=== PATIENT | male | born 1930 | race Caucasian/White ===

== ENCOUNTER 2017-05-30 13:36 | Day surgery (SDC) | payer OTHER ==
[~2017-05-30] VITALS: Ht 167.6 cm; Wt 76.5 kg
[~2017-05-30 13:36] MED LIST: AMBI5TAB PO; CYCL5TAB PO; OMEP20CA5 PO; PRAV40TA PO; PRIN10TA PO
[2017-05-30 14:27] VITALS: BP 131/65; PULSE 69; RESP 18; TEMP 98.2; O2SAT 97
[2017-05-30] MEDS ORDERED: OMEP20TA PO (14:30)
[2017-05-30] MEDS ORDERED: MECL-62 PO (14:30)
[2017-05-30] MEDS ORDERED: APIX5TAB PO (14:30)
[2017-05-30] MEDS ORDERED: LORazepam 1 MG TAB SL SCH (14:30)
[2017-05-30] MEDS ORDERED: LISI10TA3 PO (14:30)
[2017-05-30] MEDS ORDERED: DILT60TA PO (14:30)
[2017-05-30] MEDS ORDERED: CHLORHEXIDINE GLUCONATE 2 % 1 PACK (2 CLOTHS) TOPICAL PRN (15:00)
[2017-05-30] MEDS ORDERED: METOPROLOL TARTRATE 25 MG TAB PO PRN (15:00)
[2017-05-30] MEDS ORDERED: POVIDONE IODINE 5% (ANTISEPSIS KIT) 4 APPLICATIONS EACH NARE PRN (15:00)
[2017-05-30] MEDS ORDERED: INSULIN HUMAN REGULAR 1,000 UNITS/10 ML VIAL SQ PRN (15:00)
[2017-05-30] MEDS ORDERED: LACTATED RINGER'S 1000 ML IV PRN (15:00)
[2017-05-30] MEDS ORDERED: SODIUM CHLORID 0.9% 500 ML IV PRN (15:00)
[2017-05-30 15:04] LABS: AUTOMATED NEUTROPHIL # 4.1 TH/MM3 (1.8-7.7); BASOPHIL # 0.1 TH/MM3 (0-0.2); BASOPHIL % 1.2 % (0.0-2.0); EOSINOPHIL # 0.1 TH/MM3 (0-0.4); EOSINOPHIL % 2.1 % (0.0-4.0); HEMATOCRIT 38.9 % (39.0-51.0); HEMO FLAGS DIFF FINAL; LYMPH % 23.1 % (9.0-44.0); LYMPHOCYTE # 1.5 TH/MM3 (1.0-4.8); MEAN CELL VOLUME 91.2 FL (80.0-100.0); MEAN CORPUSCULAR HEMOGLOBIN 31.2 PG (27.0-34.0); MEAN CORPUSCULAR HGB CONC 34.2 % (32.0-36.0); MONO % 9.4 % (0.0-8.0); NEUT % 64.2 % (16.0-70.0); PLATELET COUNT 265 TH/MM3 (150-450); RED BLOOD COUNT 4.26 MIL/MM3 (4.50-5.90); RED CELL DISTRIBUTION WIDTH 13.6 % (11.6-17.2); WHITE BLOOD COUNT 6.3 TH/MM3 (4.0-11.0)
[2017-05-30 15:23] LABS: APTT (PATIENT) 32.2 SEC (24.3-30.1); INTERNATIONAL NORMALIZED RATIO 1.1 RATIO; PROTHROMBIN TIME - PATIENT 12.2 SEC (9.8-11.6)
[2017-05-30] MEDS ORDERED: HEPARIN-NS/PF INJ 1,000 ML ONE (15:26)
[2017-05-30] MEDS ORDERED: LEVOFLOXACIN 500 MG PREMIX INJ 100 ML IV ONE (15:26)
[2017-05-30 15:32] LABS: POTASSIUM 4.1 MEQ/L (3.5-5.1)
[2017-05-30] MEDS ORDERED: HEPARIN-NS/PF INJ 500 ML ONE (15:42)
[2017-05-30] MEDS ORDERED: ISOPROTERENOL HCL 1 MG/5 ML AMP ONE (15:42)
[2017-05-30] MEDS ORDERED: SODIUM CHLOR 0.9% 250 ML INJ 250 ML ONE (15:43)
[2017-05-30] MEDS ORDERED: MIDAZOLAM HCL 2 MG/2 ML VIAL ONE (15:43)
[2017-05-30] MEDS ORDERED: HEPARIN SODIUM - IV 10,000 UNITS/10 ML VIAL ONE (15:43)
[2017-05-30] MEDS ORDERED: HEPARIN-D5W 25,000 U/250 ML 250 ML ONE (16:28)
[2017-05-30] MEDS ORDERED: PROTAMINE SULFATE 50 MG/5 ML VIAL ONE (17:36)
--- NOTE | 2017-05-30 17:57 | PD.CARD ---
Atrial Fibrillation Cryo Study PROCEDURE DATE: May 30, 2017 PROCEDURE PERFORMED Electrophysiology study, CS cannulation, 3-D mapping, transeptal approach, right and left heart catheterization, cryoablation of atrial fibrillation, pulmonary vein isolation, posterior ablation, anterior ablation, cardioversion, repeat electrophysiology study on Isuprel infusion, intracardiac echo. Very complex case. INDICATIONS FOR PROCEDURE Mr. Wasserman is a 87-year-old male with atrial fibrillation, on multiple medications, multiple emergency room visits, on anticoagulation, referred for electrophysiology study and ablation. The risks, the nature and the benefit of the procedure are clearly stated to him. The risks include pneumothorax, cardiac perforation, stroke, need for open heart surgery and even . The patient understood and agreed to proceed. PROCEDURE As written informed consent was obtained prior to esophageal echo, the patient was kept on the table where he was prepped and draped in the usual sterile fashion. Conscious sedation was initiated and throughout the procedure by the anesthesiologist. Once sedation was verified, the right and left inguinal area was anesthetized with 2% Xylocaine. Using modified Seldinger technique, the left femoral vein was cannulated on three occasions and three guidewires were advanced over the wire, one 6, one 7, and one 10-Indian Hemaquet were advanced. Then the left femoral artery was done on one occasion, one guidewire was advanced over the wire. A 4-Indian Hemaquet was advanced. Then the right femoral vein was cannulated on one occasion and one guidewire was advanced over the wire. An 8-Indian Hemaquet was advanced. Then under fluoroscopic guidance through the 6 and 7-Indian Hemaquet, two 5- Indian Fred curved quadripolar electrophysiology catheters were advanced and positioned on the His as well as coronary sinus. The patient was in sinus rhythm. Basic interval was measured. They were all within normal limits. Then through the 10-Indian Hemaquet, a Cordis-Gomez AcuNav intracardiac echo catheter was advanced and placed at the right atrium. Multiple views were obtained. There was no pericardial effusion. Pulmonary vein was seen. The atrial septum was visualized. Then the 8-Indian Hemaquet in the right femoral vein was exchanged for an Agilis transseptal sheath that was placed all the way to the superior vena cava. Through this sheath a [place] needle was advanced. Then the sheath, the dilator and the needle were pulled back progressively until foci engaged. Once the needle was advanced, RF was delivered for 2 seconds. I was able to cross into the left atrium. Once the needle was crossed, the dilator was advanced. Once the dilator was crossed, the sheath was advanced. Once the sheath crossed , the dilator and needle were removed. An intracardiac echo showed the sheath in good position. The patient already received 10,000 units of heparin. The goal is to get an ACT around 360 during the ablation. Through this sheath a [employer] 10-pole circumferential catheter was advanced. Using BitWave endocardial solution mapping system a three-dimensional configuration of the left atrium was obtained. Points were taken at the left superior and inferior vein, right superior and inferior vein, mitral valve, and appendage. Then at this point I decided to proceed with cryoablation. The circumferential catheter was removed. Through the sheath a 0.035 wire was advanced. I did exchange the Agilis sheath for a Medtronic flex sheath. I decided to use a 28mm balloon. The balloon was advanced over the wire. First I did engage the left superior vein. The balloon was inflated, complete occlusion obtained. CryoEnergy was delivered for 3 and 3 minutes. Temperature reached --46. Then I did engage the left inferior vein, occlusion obtained. Venography showed complete occlusion and CryoEnergy was delivered for 3 and 3 minutes. Temperature was around -46 to -50. Then the right inferior was engaged, complete occlusion obtained. Temperature reach -48 for 3 and 3 minutes. Then the right superior was engaged. Before CryoEnergy of the right veins, the His catheter was placed at the left and the right subclavian. Phrenic nerve pacing was performed. There was diaphragmatic stimulation. That is going to be used for phrenic nerve monitoring during cryoablation. I did cryoablate the right superior vein. There was no loss of phrenic nerve movement , diaphragmatic movement. Phrenic nerve was intact. The temperature dropped to -50 for 3 and 3 minutes. At that point I removed the balloon. Patient went adan atrial fibrillation during isolation of the left inferior vein. The circumferential catheter was advanced into the veins. There was no signal into the veins. Patient was converted into sinus rhythm by a 200 sync biphasic joules. Pacing from the vein showed no conduction to the atrium. Pacing from the atrium showed no conduction to the veins. The patient at this point received Isuprel infusion for around 10 minutes at 20mcg. No tachyarrhythmia was induced, no conduction resumed. Post-Isuprel no conduction resumed either. At that point the procedure was complete. All catheters were removed, the transeptal sheath was exchanged for a 12-Indian Hemaquet. Intracardiac echo showed pericardial effusion, still good flow in the pulmonary vein. No incident reported. The patient tolerated the procedure. Blood loss minimal. 1. Electrocardiogram: At baseline the patient was in sinus. Postprocedure the patient in sinus. 2. Basic Interval: Base cycle length was around 1050 milliseconds.AH 84 HV 60ms. 3. Tachyarrhythmia: Atrial fibrillation was mapped and ablated. Ablation was successful. CONCLUSION Successful electrophysiology study, mapping and cryo ablation of atrial fibrillation, pulmonary vein isolation, posterior and anterior wall ablation, repeat electrophysiology study on Isuprel infusion and cardioversion. COMMENT AND RECOMMENDATIONS The patient is going to be transferred to the telemetry unit, will be observed, and when stable can be discharged home. Ariel Chairez MD May 30, 2017 17:57
[2017-05-30] MEDS ORDERED: oxyCODONE/ACETAMINOPHEN 5 MG/325 MG TAB PO PRN ×2 (18:00)
[2017-05-30] MEDS ORDERED: SODIUM CHLOR 0.9% 250 ML INJ 250 ML IV PRN (18:00)
[2017-05-30] MEDS ORDERED: LIDOCAINE HCL 1% 50 ML VIAL INFIL PRN (18:00)
[2017-05-30] MEDS ORDERED: ATROPINE SULFATE 1 MG/ML VIAL IV PUSH PRN (18:00)
[2017-05-30] MEDS ORDERED: LORazepam 2 MG/ML VIAL IV PUSH PRN (18:00)
[2017-05-30] MEDS ORDERED: METOCLOPRAMIDE HCL 10 MG/2 ML VIAL IV PUSH PRN (18:00)
[2017-05-30] MEDS ORDERED: ONDANSETRON HCL 4 MG/2 ML VIAL IV PUSH PRN (18:00)
--- NOTE | 2017-05-30 18:38 | CATHPROC ---
[employer] HIS Report Study Information Study Number Admission Scheduled Start Study Start [id number] May 30 2017 1:36PM 05/30/2017 May 30 2017 3:30PM [place] [facility] Electrophysiology Study Admit Source Facility Department Other [facility] Physician and Clinical Staff Initial Ariel Perla Safety Investigator/Cause Analyst Heriberto Cohen,RT(R) Other Anesthesia, PRODUCT DEVELOPER Recorder Jennifer Parikh,RN Scrub Christie Ozuna,MERCHANDISING MANAGER TECH2 Procedures Performed Procedure Location (Site) Vessel Name Ablation Procedure Cardioversion CRYO Ablation LIPV LIPV CRYO Ablation LSPV LSPV CRYO Ablation RIPV RIPV CRYO Ablation RSPV RSPV ICE CATHETER INSERT RA Atruim Venogram LIPV LIPV Venogram LSPV LSPV Venogram RIPV RIPV Venogram RSPV RSPV Equipment Time Piercing Specialist Description Size Mfg Part Number Used/Scraped COPILOT VALVE, BLEEDBACK [id number] 16:36 [employer] Used CONTROL *[id number] TRANSDUCER, TRUWAVE [id number] 16:36 MONRO[employer] CHILDS * Used W/STOCKCOCK *[id number] NEEDLE, TRANSSEPTAL NR 98 16:36 [facility] [id number] Used C1 SHEATH, FR8.5 STEERABLE SM 16:14 BUNDLE-[facility] 71CM [id number] Used 71CM BUNDLE COVER, TRANSDUCER CABLE 16:36 [employer] 612-113 Used ACUNAV 16:36 CONMED LEADWIRE, DEFIBRILLATION PAD 2001M-PC Used SHEATH SET, FR12 CHECK-JIHAN RCF-12.0-38-J 16:36 COOK/PACER FR12 Used 13CM *[id number] 16:14 CORDIS/PACER SHEATH, FR10 SHUN 11CM FR 10 [id number] Used [id number] 16:36 [employer] INDUSTRIES PACK, CCL CUSTOM * Used *[id number] 16:36 MEDLINE PACER [place], LIMB * 2530 *[id number] Used [id number] 16:14 [employer] MEDICAL SHEATH, FR4.5 PRELUDE 11CM FR 4.5 Used [id number] 16:36 [employer] MEDICAL WIRE, 3MMJ .035 180CM 180CM Used *[id number] 16:36 NAMIC MANIFOLD, 4 PORT * Used *[id number] 16:36 NAMIC TUBING, HIGH PRESSURE 20" 20" Used *[id number] 16:36 NAMIC TUBING, HIGH PRESSURE 48" 48" Used *[id number] TUBING, PRESSURE MONITORING [id number] 16:36 NAMIC PACER 72" Used 72" *[id number] 16:46 NYCOMED OMNIPAQUE, 350 MG, 150ML 150ML [id number] Used [id number] 16:36 [employer],WARM AIR CCL * Used *[id number] 258652 16:36 [facility] MEDICAL CATHETER, JSN, QUAD FR 5 Used *[id number] 715410 16:36 [facility] MEDICAL CATHETER, JSN, QUAD FR 5 Used *[id number] 16:36 [facility] MEDICAL ELECTRODE KIT, LEX X SURFACE * [id number] Used [id number] 16:14 [facility] MEDICAL SHEATH, EPS, FR6 FAST CATH FR 6 Used *[id number] 16:14 [facility] MEDICAL SHEATH, EPS, FR7 FAST CATH FR 7 [id number] Used [id number] 16:14 [facility] MEDICAL SHEATH, EPS, FR8 FAST CATH FR 8 Used *[id number] 959232 16:36 [facility] MEDICAL SHEATH, EPS, FR8 FAST CATH FR 8 Used *[id number] [facility] PAD, ELECTROSURGICAL 16:36 * [id number] *[id number] Used SURGICAL GROUNDING (BLUE) BALLOON, ARCTIC FRONT [id number] 16:43 [employer]RON [employer] Used ADVANCE 28MM *[id number] SHEATH, FR12 FLEXCATH 16:38 VITATRON MEDTRONIC FR 12 [id number] Used STEERABLE Medication Medication Total Dose (Bolus/Oral) Medication Total Dosage/Unit 1% XYLOCAINE 40 mL HEPARIN 9000 units PROTAMINE 40 mg Medications (Bolus/Oral) Medication Time Given Dosage/Unit Administered By Reason 1% XYLOCAINE 05/30/2017 4:15:37 PM 20 mL Ariel Chairez 20 mL 1% XYLOCAINE given in lab by Ariel Chairez in Left Groin via Subcutaneous. Ordered by Jm Chairez. 1% XYLOCAINE 05/30/2017 4:19:29 PM 20 mL Ariel Chairez 20 mL 1% XYLOCAINE given in lab by Areil Chairez in Right Groin via Subcutaneous. Ordered by Dc Chairez. HEPARIN 05/30/2017 4:30:19 PM 9000 units Anesthesia, PRODUCT DEVELOPER 9000 units HEPARIN given in lab by Anesthesia, PRODUCT DEVELOPER via Peripheral IV. Ordered by Ariel Chairez. PROTAMINE 05/30/2017 5:53:24 PM 40 mg Anesthesia, PRODUCT DEVELOPER 40 mg PROTAMINE given in lab by Anesthesia, PRODUCT DEVELOPER via Peripheral IV. Ordered by Ariel Chairez. Medication (Drip) Medication Time Given Dosage/Unit Concentration/Unit Diluent (ml) Solution HEPARIN DRIP 05/30/2017 4:47:00 PM 1000 units/hr 47933 units 250 D5W 1000 units/hr HEPARIN DRIP given in lab by Anesthesia, PRODUCT DEVELOPER via Peripheral IV. Pump/Drip Flow = 10 ml /hr [place] [address] units in 250 ml. Ordered by Ariel Chairez. ISUPREL 05/30/2017 5:31:35 PM 20 mcg/min 1 mg 250 NaCl .9 20 mcg/min ISUPREL given in lab by Anesthesia, PRODUCT DEVELOPER via Peripheral IV. Pump/Drip Flow = 300 ml/hr usi ng NaCl .9 with a concentration of 1 mg in 250 ml. Ordered by Ariel Chairez. IV Solutions 05/30/2017 3:38:03 PM 0 mL (IV) 500 NaCl .9 IV Solutions given by Ariel Chairez in Right Antecubital via Peripheral IV. Pump/Drip Flow = 20 ml/hr using NaCl .9. IV Solutions 05/30/2017 3:38:48 PM 0 mL (IV) 500 NaCl .9 IV Solutions given by Ariel Chairez in Left Antecubital via Peripheral IV. Pump/Drip Flow = 20 ml/hr using NaCl .9. LEVAQUIN 05/30/2017 3:55:20 PM 500 mL/hr 500 100 NaCl .9 500 mL/hr LEVAQUIN given in lab by Anesthesia, PRODUCT DEVELOPER in Right Antecubital via Peripheral IV. Pump/Drip Flow = 0 ml/hr using NaCl .9 with a concentration of 500 in 100 ml. Ordered by Ariel Chairez. Chronological Log Time Study Chronological Log 15:05:15 Patient arrived via Bed. 15:30:27 Patient Name, D.O.B, / Armband Verified By R.N. 15:30:30 Consent signed by the physician and the patient and verified by the [facility] staff. 15:30:32 Pre-op and post- op instructions given; patient acknowledges understanding of instruction s. 15:30:33 Verbal Stimulation=2 Physical Stimulation=2 Airway=2 Respiration=2 TOTAL=8. (0=absent, 1= limited, 2=present) 15:32:43 Presedation assessment performed by [facility] RN. 15:32:45 Patient has been NPO for More than 6Hrs. 15:32:46 Skin Breakdown/none per patient 15:33:06 Patient Warmer Placed on the Table. 15:33:11 Disposable Defibrillator Pads Placed On Patient. 15:33:14 Ruthann Prominences Protected 15:33:16 History and physical on the chart or being dictated. 15:37:16 A # 20 IV was noted in the Antecubital (left). Grade = 0 15:37:34 A # 20 IV was noted in the Antecubital (right). Grade = 0 15:38:03 IV Solutions given by Ariel Chairez in Right Antecubital via Peripheral IV. Pump/Drip Flow = 20 ml/hr using NaCl .9. 15:38:48 IV Solutions given by Ariel Chairez in Left Antecubital via Peripheral IV. Pump/Drip Flow = 20 ml/hr using NaCl .9. 15:39:23 Anesthesia at bedside. Assumes care of patient. 15:45:00 DR GONSALVES PRESENT FOR INTUBATION (FABIANO NAJERA) 15:50:05 14 f beltran inserted by vargas vargas RN clear yellow urine return w/o difficulty 500 mL/hr LEVAQUIN given in lab by FABIANO Lopez in Right Antecubital via Peripheral IV. Pum p/Drip Flow = 0 15:55:20 ml/hr using NaCl .9 with a concentration of 500 in 100 ml. Ordered by Ariel Chairez. 16:03:05 Reference ECG taken 16:04:48 Pressure channel 2 zeroed. 16:09:00 MD arrived. Time Out. Correct patient, procedure, procedure equipment, site and side verified with physicia n present. Time 16:11:31 concurred by MD, individual staff and PRODUCT DEVELOPER. Time Out #2 - Consents verified, patient in correct position, all results are labled and displa yed, safety precautions 16:11:32 taken, antibiotics administered. Time out concurred by MD, individual staff and PRODUCT DEVELOPER in procedu re 16:11:34 Case Start 16:11:50 TEJAL IN PROGRESS 16:14:00 TEJAL COMPLETE 16:15:37 20 mL 1% XYLOCAINE given in lab by Ariel Chairez in Left Groin via Subcutaneous. Ordered by Ariel Chairez. 16:16:24 Vascular access was obtained in the Fem Vein (left). 16:16:26 Vascular access was obtained in the Fem Vein (left). 16:16:26 Vascular access was obtained in the Fem Vein (left). 16:16:28 Vascular access was obtained in the Fem Vein (left). 16:16:59 A SHEATH, EPS, FR6 FAST CATH FR 6 was advanced into the Fem Vein (left) using the Modified Seldinger technique. 16:17:10 A SHEATH, EPS, FR7 FAST CATH FR 7 was advanced into the Fem Vein (left) using the Modified Seldinger technique. 16:17:16 A SHEATH, FR10 SHUN 11CM FR 10 was advanced into the Fem Vein (left) using the Modified S eldinger technique. 16:17:20 A SHEATH, FR4.5 PRELUDE 11CM FR 4.5 was advanced into the Fem Art (left) using the Modified Seldinger technique. 16:19:29 20 mL 1% XYLOCAINE given in lab by Ariel Chairez in Right Groin via Subcutaneous. Ordered b Ariel William. 16:19:34 Vascular access was obtained in the Fem Vein (right). 16:20:14 A SHEATH, EPS, FR8 FAST CATH FR 8 was advanced into the Fem Vein (right) using the Modified Seldinger technique. A CATHETER, JSN, QUAD FR 5 was advanced vis Fem Vein (left) and placed in the CS. Placement was visually 16:22:08 confirmed under fluoroscopy. A CATHETER, JSN, QUAD FR 5 was advanced vis Fem Vein (left) and placed in the HIS. Placement wa s visually 16:22:18 confirmed under fluoroscopy. 16:25:37 ice catheter Was Postioned. A SHEATH, FR8.5 STEERABLE SM 71CM BUNDLE 71CM was exchanged in the Fem Vein (right). This was n ecessary in 16:25:59 order to accomodate a larger catheter. 16:26:44 BAYLIS NEEDLE INSERTED 16:30:19 9000 units HEPARIN given in lab by Anesthesia, PRODUCT DEVELOPER via Peripheral IV. Ordered by Jm Chairez. 16:30:50 A eps was advanced to the right atrium and passed through the septal wall to the left atriu m. 16:30:53 BAYLIS NEEDLE REMOVED A SHEATH, FR12 FLEXCATH STEERABLE FR 12 was exchanged in the Fem Vein (right). This was necessa ry in order to 16:37:08 accomodate a larger catheter. 16:41:45 A BALLOON, ARCTIC FRONT ADVANCE 28MM was inserted over WIRE, 3MMJ .035 180CM 180CM via the LT. ATRIUM. 16:41:47 Activated Clotting Time Drawn A eps was advanced vis Fem Vein (right) and placed in the LA. Placement was visually confirmed under fluoroscopy. 16:46:19 ACHIEVE 16:46:57 ACT (Normal Range 90-180) = 386 1000 units/hr HEPARIN DRIP given in lab by Anesthesia, PRODUCT DEVELOPER via Peripheral IV. Pump/Drip Flow = 10 ml/hr using 16:47:00 [place] [address] units in 250 ml. Ordered by Ariel Chairez. 16:48:59 The LSPV was manually injected with 10 cc's of contrast. OMNIPAQUE, 350 MG, 150ML 150ML use d. 16:49:10 Cryo Ablation of the LSPV with a BALLOON, ARCTIC FRONT ADVANCE 28MM. 1ST FREEZE (-47) 16:53:21 Cryo Ablation of the LSPV with a BALLOON, ARCTIC FRONT ADVANCE 28MM. 2ND FREEZE (-48) 16:58:11 The LIPV was manually injected with 10 cc's of contrast. OMNIPAQUE, 350 MG, 150ML 150ML use d. 16:58:31 Cryo Ablation of the LIPV with a BALLOON, ARCTIC FRONT ADVANCE 28MM. 1ST FREZZE (-52) 17:03:17 Cryo Ablation of the LIPV with a BALLOON, ARCTIC FRONT ADVANCE 28MM. 2ND FREZZE (-51) 17:08:14 The RIPV was manually injected with 10 cc's of contrast. OMNIPAQUE, 350 MG, 150ML 150ML use d. 17:09:24 Cryo Ablation of the RIPV with a BALLOON, ARCTIC FRONT ADVANCE 28MM. 1ST FREEZE (-51) 17:13:51 Cryo Ablation of the RIPV with a BALLOON, ARCTIC FRONT ADVANCE 28MM. 2ND FREEZE (-48) 17:17:57 The RSPV was manually injected with 10 cc's of contrast. OMNIPAQUE, 350 MG, 150ML 150ML use d. 17:18:14 Cryo Ablation of the RSPV with a BALLOON, ARCTIC FRONT ADVANCE 28MM. 1ST FREEZE (-45) 17:21:59 Cryo Ablation of the RSPV with a BALLOON, ARCTIC FRONT ADVANCE 28MM. 2ND FREEZE (-48) 17:27:00 ECG rhythm of AF noted. Patient cardioverted at 200 joules. Success 17:28:11 MAPPING IN PROGRESS 17:28:25 Activated Clotting Time Drawn 20 mcg/min ISUPREL given in lab by Anesthesia, PRODUCT DEVELOPER via Peripheral IV. Pump/Drip Flow = 300 ml/ hr using NaCl .9 17:31:35 with a concentration of 1 mg in 250 ml. Ordered by Ariel Chairez. 17:32:01 ACT (Normal Range 90-180) = 348 17:41:22 D/C ISUPREL 17:47:20 Catheter(s) removed without difficulty A SHEATH SET, FR12 CHECK-JIHAN 13CM FR12 was exchanged in the Fem Vein (right). This was necessar y in order to 17:48:42 minimize site leakage. 17:49:06 Case End 17:49:42 Sterile dressing applied to site 17:49:43 No case complications noted. 17:49:44 Cine recording checked. 17:49:56 PACU called. Spoke to FER 17:52:13 Defibrillator and ground pads removed. Skin intact. 17:53:24 40 mg PROTAMINE given in lab by Anesthesia, PRODUCT DEVELOPER via Peripheral IV. Ordered by Aileen Chairez. 17:59:01 Activated Clotting Time Drawn 17:59:30 ACT (Normal Range 90-180) = 159 18:01:06 Ablation procedure performed: AFIB. 18:01:14 EP Procedure was performed. CRYO 18:01:41 Sheath removed; pressure applied to access site. 18:37:53 Sterile dressing applied to site 18:37:53 No case complications noted. 18:37:54 Cine recording checked. 18:37:59 Bedside Report will be given. 18:38:01 Defibrillator and ground pads removed. Skin intact. 18:38:[address] [facility] Study - Contrast Media Used In Study Contrast Total Opened (mL) Total Used (mL) Total Wasted (mL) Omnipaque 50 50 0 End Study - Radiation Exposure Fluoro Time (minutes) 5.8 End Study - Patient Disposition Complications Transferred To Interventional Outcome No Telemetry Bed successful
[2017-05-30] MEDS ORDERED: DO NOT ADM ANY ANTICOAGULANT DRUGS PRN (18:48)
[2017-05-30] MEDS ORDERED: BACITRACIN OINT 0.9 GM PKT TOP ONE (19:00)
[2017-05-30] MEDS ORDERED: AMIODARONE 200 MG TAB PO SCH (21:00)
[2017-05-30 21:17] VITALS: PULSE 84
[2017-05-30] MEDS: APIXABAN 5 MG TABLET PO SCH (21:49)
[2017-05-30 22:00] VITALS: PULSE 93
[2017-05-30 23:00] VITALS: PULSE 75
[2017-05-30 23:15] VITALS: BP 108/70; PULSE 77; RESP 17; TEMP 98; O2SAT 96
[2017-05-31] VITALS (15 sets, daily range): BP systolic 103–113; BP diastolic 67–70; PULSE 74–90; RESP 16–17; TEMP 97.5–98.3; O2SAT 94–96
[2017-05-31 07:52] LABS: APTT (PATIENT) 32.5 SEC (24.3-30.1); INTERNATIONAL NORMALIZED RATIO 1.1 RATIO; PROTHROMBIN TIME - PATIENT 12.7 SEC (9.8-11.6)
[2017-05-31] MEDS: APIXABAN 5 MG TABLET PO SCH (08:18)
[2017-05-31] MEDS ORDERED: LISINOPRIL 10 MG TAB PO SCH (09:00)
[2017-05-31] MEDS ORDERED: PANTOPRAZOLE SOD 20 MG DELAYED RELEASE TAB PO SCH (09:00)
[2017-05-31] MEDS: SODIUM CHLORID 0.9% 500 ML INJ 500 ML IV SCH ×2 (10:55→11:15)
--- NOTE | 2017-05-31 11:50 | HHI.PR ---
Subjective Remarks Feeling fine Objective Vital Signs Date Time Temp Pulse Resp B/P (MAP) Pulse Ox O2 Delivery O2 Flow Rate FiO2 05/31/17 06:17 85 05/31/17 05:07 78 05/31/17 04:42 77 05/31/17 03:15 90 05/31/17 03:15 98.3 78 16 105/67 (80) 95 05/31/17 02:08 87 05/31/17 01:00 77 05/31/17 00:00 74 05/30/17 23:15 98.0 77 17 108/70 (83) 96 05/30/17 23:00 75 05/30/17 22:00 93 05/30/17 21:17 84 05/30/17 20:30 76 20 103/62 (76) 96 Nasal Cannula 2 05/30/17 20:15 74 13 107/62 (77) 97 Nasal Cannula 2 05/30/17 20:00 72 13 112/61 (78) 97 Nasal Cannula 2 05/30/17 19:30 73 20 102/58 (73) 97 Nasal Cannula 2 05/30/17 19:15 73 20 107/61 (76) 97 Nasal Cannula 2 05/30/17 19:00 97.5 71 16 106/60 (75) 97 Nasal Cannula 3 05/30/17 18:49 97.5 76 20 107/55 (72) 99 Nasal Cannula 4 05/30/17 14:27 98.2 69 18 131/65 (87) 97 I/O 05/30/17 05/30/17 05/30/17 05/31/17 05/31/17 05/31/17 07:00 15:00 23:00 07:00 15:00 23:00 Intake Total 360 ml Output Total 150 ml 300 ml Balance -150 ml 60 ml Intake Oral 360 ml Output Urine Total 150 ml 300 ml Result Diagram: 05/30/17 1424 05/30/17 1424 Imaging Alert, fully oriented, out of bed Lungs: ventilated Heart: S1, S2 regular, no gallop Abdomen: soft, no mass Ext: no edema Current Medications Medications (Trade) Dose Ordered Sig/Aba Route Start Time Stop Time Status Last Admin Lactated Ringer's 1,000 ml @ 30 mls/hr Q24H PRN IV 05/30/17 15:00 06/02/17 14:59 Sodium Chloride 500 ml @ 30 mls/hr [id number] PRN IV 05/30/17 15:00 06/02/17 14:59 (Lopressor) 25 mg RAIL CAR DRIVER PRN PO 05/30/17 15:00 06/02/17 14:59 (Betadine 5% Antisepsis Kit) 1 applic RAIL CAR DRIVER PRN EACH NARE 05/30/17 15:00 06/02/17 14:59 (Chlorhexidine 2% Cloth) 3 pack RAIL CAR DRIVER PRN TOPICAL 05/30/17 15:00 06/02/17 14:59 (NovoLIN R INJ) See Protocol Table ... RAIL CAR DRIVER PRN SQ 05/30/17 15:00 06/02/17 14:59 Sodium Chloride 500 ml @ 30 mls/hr [id number] IV 05/30/17 15:00 (Ativan) 1 mg RAIL CAR DRIVER SL 05/30/17 14:30 06/02/17 14:29 (Percocet 5-325 Mg) 1 tab Q4H PRN PO 05/30/17 18:00 05/30/17 23:28 (Percocet 5-325 Mg) 2 tab Q4H PRN PO 05/30/17 18:00 (Ativan Inj) 0.5 mg UNSCH PRN IV PUSH 05/30/17 18:00 05/31/17 17:59 (Atropine Inj) 0.5 mg UNSCH PRN IV PUSH 05/30/17 18:00 Sodium Chloride 250 ml @ 500 mls/hr ONCE PRN IV 05/30/17 18:00 05/31/17 17:59 (Reglan Inj) 10 mg Q4H PRN IV PUSH 05/30/17 18:00 (Zofran Inj) 4 mg Q4H PRN IV PUSH 05/30/17 18:00 (Xylocaine 1% Inj (50 ml)) 10 ml UNSCH PRN INFIL 05/30/17 18:00 05/31/17 17:59 (Eliquis) 5 mg BID PO 05/30/17 21:00 05/31/17 08:18 (Prinivil) 10 mg DAILY PO 05/31/17 09:00 05/31/17 08:18 (Protonix) 20 mg DAILY PO 05/31/17 09:00 05/31/17 08:18 (Cordarone) 400 mg Q24H PO 05/30/17 21:00 06/05/17 21:01 05/30/17 21:50 (Cordarone) 200 mg Q24H PO 06/06/17 21:00 Miscellaneous Information ALL NURSING DEPARTME... UNSCH PRN .XX 05/30/17 18:48 05/31/17 18:47 Assessment and Plan Problem List: (1) Atrial fibrillation ICD Codes: I48.91 - Unspecified atrial fibrillation Plan: In sinus rhythm SP ablation. Doing well. will be DH today Continue on Eliquis Follow up as previously scheduled (2) Palpitations ICD Codes: R00.2 - Palpitations Plan: No episode reported Ariel Chairez MD May 31, 2017 11:50
--- NOTE | 2017-05-31 20:53 | EKG ---
Date Performed: 05/30/2017 Time Performed: 14:48:30 PTAGE: 87 years EKG: Sinus rhythm Lateral ST-T changes are nonspecific Borderline ECG PREVIOUS TRACING : 11/04/2007 20.34 SINCE PREVIOUS TRACING, THE ST-T CHANGES ARE NEW, BUT ARE N ONSPECIFIC. DOCTOR: Timur Macias Interpretating Date/Time 05/31/2017 20:51:28
--- NOTE | 2017-05-31 20:53 | EKG ---
Date Performed: 05/30/2017 Time Performed: 19:05:09 PTAGE: 87 years EKG: Sinus rhythm BORDERLINE ECG PREVIOUS TRACING : 05/30/2017 14.48 Compared to prior tracing no significant change DOCTOR: Timru Macias Interpretating Date/Time 05/31/2017 20:51:45
--- NOTE | 2017-05-31 20:53 | EKG ---
Date Performed: 05/31/2017 Time Performed: 04:33:14 PTAGE: 87 years EKG: Sinus rhythm Lateral T wave changes are nonspecific Borderline ECG PREVIOUS TRACING : 05/30/2017 19.05 Compared to prior tracing no significant change DOCTOR: Timur Macias Interpretating Date/Time 05/31/2017 20:52:09
[2017-06-06] MEDS ORDERED: AMIODARONE 200 MG TAB PO SCH (21:00)
== END 2017-05-31 15:08 | disposition home or self-care (01) ==
LOC: HCAT 13:36 → HDIC 13:37 → HCIN 21:02 → HCAT 05-31 15:08
PROVIDERS: ATTEND Internal Medicine Interventional Cardiology
DX: I48.0 Paroxysmal atrial fibrillation (principal); I10 Essential (primary) hypertension; E78.5 Hyperlipidemia, unspecified; Q23.1 Congenital insufficiency of aortic valve; E66.9 Obesity, unspecified; Z68.27 Body mass index [BMI] 27.0-27.9, adult; Z87.891 Personal history of nicotine dependence; Z85.46 Personal history of malignant neoplasm of prostate; Z79.01 Long term (current) use of anticoagulants; Z79.899 Other long term (current) drug therapy
CPT/HCPCS: 00537; 80048; 85002; 85025; 85610; 85730; 86850; 86900; 86901; 92960; 93005; 93312; 93320; 93325; 93613; 93623; 93656; 93662; C1730; C1731; C1732; C1733; J1644; J1956; J2250; J2720; J3010; J7050

== ENCOUNTER 2018-02-12 08:07 | Observation (INO) | payer OTHER ==
[~2018-02-12] VITALS: Ht 167.6 cm; Wt 51.1 kg
[~2018-02-12 08:07] MED LIST changes: -AMBI5TAB PO; +APIX5TAB PO; +ASPI-183 PO; -CYCL5TAB PO; +FLUT50SP EACH NARE; +LIDOCAINE 1%/EPINEPHrine 1:100,000 SOLN 30 ML VIAL ONE; +LISI10TA3 PO; +MECL-62 PO; -OMEP20CA5 PO; +OMEP20TA93 PO; +OXYC1TAB63 PO; +OXYMETAZOLINE HCL 0.05% 15 ML NASAL SPRAY ONE; -PRAV40TA PO; -PRIN10TA PO; +SULI200T PO
[2018-02-12] MEDS ORDERED: CHLORHEXIDINE GLUCONATE 2 % 1 PACK (2 CLOTHS) TOPICAL PRN (09:30)
[2018-02-12] MEDS ORDERED: AMPICILLIN/SULBAC 3 GM/NS 100 ML IV SCH ×2 (09:30)
[2018-02-12] MEDS ORDERED: METOPROLOL TARTRATE 25 MG TAB PO PRN (09:30)
[2018-02-12] MEDS ORDERED: SODIUM CHLORID 0.9% 500 ML IV PRN (09:30)
[2018-02-12] MEDS ORDERED: POVIDONE IODINE 5% (ANTISEPSIS KIT) 4 APPLICATIONS EACH NARE PRN (09:30)
[2018-02-12] MEDS ORDERED: LACTATED RINGER'S 1000 ML IV PRN (09:30)
[2018-02-12] MEDS ORDERED: MORPHINE SULFATE 4 MG/ML INJ ONE (09:57)
[2018-02-12] MEDS ORDERED: SUGAMMADEX SODIUM 200 MG/2 ML VIAL IV PUSH ONE (10:06)
[2018-02-12] MEDS ORDERED: MUPIROCIN 2% OINT 22 GM TUBE ONE (11:29)
[2018-02-12 12:05] VITALS: PULSE 90
[2018-02-12] MEDS ORDERED: ACETAMINOPHEN/HYDROcodone 325 MG/5 MG TAB PO PRN (12:45)
[2018-02-12 13:00] VITALS: BP 124/65; PULSE 72; PULSE 76; RESP 19; TEMP 98.7; O2SAT 95
[2018-02-12] MEDS ORDERED: ONDANSETRON HCL 4 MG/2 ML VIAL IV PUSH PRN (13:00)
[2018-02-12] MEDS ORDERED: AMPICILLIN/SULBAC 1500 MG/NS 100 ML IV SCH ×2 (13:00)
[2018-02-12] MEDS: LACTATED RINGER'S 1000 ML INJ 1,000 ML IV SCH (14:27)
[2018-02-12 15:20] VITALS: O2SAT 100
[2018-02-12 16:00] VITALS: BP 136/70; PULSE 80; RESP 19; TEMP 98.2; O2SAT 100
[2018-02-12] MEDS: AMPICILLIN/SULBAC 1500 MG/NS 100 ML IV SCH ×2 (17:21)
[2018-02-12 20:00] VITALS: BP 109/50; PULSE 71; RESP 16; TEMP 96.4; O2SAT 100
[2018-02-13] VITALS: BP 121/64; PULSE 68; RESP 18; TEMP 96; O2SAT 98
[2018-02-13] MEDS: AMPICILLIN/SULBAC 1500 MG/NS 100 ML IV SCH ×4 (01:50→08:17)
[2018-02-13] MEDS: LACTATED RINGER'S 1000 ML INJ 1,000 ML IV SCH (04:15)
[2018-02-13 07:17] VITALS: O2SAT 98
[2018-02-13 07:24] VITALS: O2SAT 98
[2018-02-13 07:50] VITALS: BP 151/83; PULSE 85; RESP 20; TEMP 96.7; O2SAT 100
[2018-02-13] MEDS ORDERED: LISINOPRIL 10 MG TAB PO SCH (09:00)
[2018-02-13] MEDS ORDERED: PANTOPRAZOLE SOD 20 MG DELAYED RELEASE TAB PO SCH (09:00)
--- NOTE | 2018-02-15 13:59 | MP ---
cc: Dustin Street MD DATE OF OPERATION: 02/12/2018 SURGEON: Dustin Street MD PREOPERATIVE DIAGNOSIS: 1. Bilateral anterior nasal stenosis. 2. Nasoseptal deviation. 3. Hypertrophy of inferior turbinates. POSTOPERATIVE DIAGNOSIS: 1. Bilateral anterior nasal stenosis. 2. Nasoseptal deviation. 3. Hypertrophy of inferior turbinates. OPERATION PERFORMED: 1. Repair of bilateral anterior nasal stenosis. 2. Open repair nasal septal fracture. 3. Bilateral submucosal resection of inferior turbinates. INDICATIONS: Documented in the history and physical. DETAILS OF PROCEDURE: The patient was taken to OR #2 and placed in the supine position. Following induction of general anesthesia and intubation, the nose was packed bilaterally with cotton pledgets saturated in 0.05% oxymetazoline. In the septum, the inferior turbinates, the columella, the nasal vestibules, tip and dorsum of the nose were injected with a total of 14 mL of 1% Xylocaine with epinephrine 1:100,000. He was then prepped and draped for surgery. A W-plasty incision was then made on the inferior surface of the columella. This was carried down sharply to the inferior borders of the medial crura of lower lateral cartilages. These inferior borders were then followed anteriorly and superiorly, extending the skin incisions within the nasal vestibule and elevating the skin from the columella of the nasal tip and dorsum, also exposing the lateral crura of the lower lateral cartilages. There was evidence of trauma to the medial crura and domes of the lower lateral cartilages. Sharp dissection then continued between the medial crura and domes, down to the anterior end of the quadrangular cartilage. There was only a small remnant of this cartilage remaining and the other anterior-most 1.5 cm of the cartilage had been resorbed following old trauma. The soft tissue of the anterior vestibule skin and mucosa was then divided sharply until healthy cartilage was encountered. This also showed evidence of old comminuted fracture. The soft tissues were elevated from the fractured segments and they were removed and preserved on the back table for use in reconstruction of the nose. An adequate 1 cm dorsal cartilaginous strip was preserved. Mucosa was then elevated from the bony septum and the maxillary crest. The bony septum was removed using Catrachito-Thorpe forceps and Isaías septal forceps. The maxillary crest which also showed evidence of old fracture was removed with a closed Catrachito-Ila forceps and a 6 mm Jeovany chisel. Reconstruction of the tip was then begun, incorporating a 3 x 15 mm segment of the quadrangular cartilage between the medial crura of the lower laterals. There was also a 12 x 14 mm segment, somewhat triangular in shape used to support the place between the skin of the anterior vestibule and held in place with horizontal mattress sutures of 4-0 Vicryl. The strut and the medial crura was then held in place with interrupted sutures of 5-0 clear nylon. Additional mattress sutures of the clear nylon were placed between the lateral crura of lower lateral cartilages to help elevate the tip and compensate for the ptosis of the nasal dorsum. When this was completed, the septal layers of mucosa were reapproximated to each other with a quilting stitch of 4-0 plain gut. The inferior turbinates were addressed at this time. They were fractured out medially and stab incisions made along their inferior surfaces. Through these incisions, the submucosal soft tissue was reduced using a curette and preserving the conchal bone. The incisions were then cauterized using the suction Bovie at 35 jimenez and then remnants of the inferior turbinates were then re-lateralized to the lateral nasal wall. The skin was then redraped over the nasal dorsum and the W-plasty incision was closed using interrupted sutures of 5-0 fast-absorbing plain gut. When this was completed, the nose was then irrigated and suctioned. It was packed with Merocel tampons coated in mupirocin ointment and the procedure was terminated. The patient was reversed from anesthesia and taken to recovery in good condition. There were no complications. Blood loss was 200 mL. MD SCOTTY Henning/DEBORAH , 01:16 PM , 01:58 PM
== END 2018-02-13 10:22 | disposition home or self-care (01) ==
LOC: PHSDC 08:07 → PH3A 13:36
PROVIDERS: ADMIT Otolaryngology; ATTEND Otolaryngology
DX: J34.89 Other specified disorders of nose and nasal sinuses (principal); J34.2 Deviated nasal septum; J34.3 Hypertrophy of nasal turbinates
CPT/HCPCS: 00160; 21335; 30140; 30465; 94762; 96361; 96365; 96366; G0378; J0295; J2270; J3010; J7120